=== PATIENT | male | born 1995 | race Caucasian/White ===

== ENCOUNTER 2016-10-05 02:55 | Emergency (ER) | payer BC ==
[~2016-10-05] VITALS: Ht 182.9 cm; Wt 74.2 kg
[2016-10-05 03:00] VITALS: TEMP 36.6; Ht 182.9 cm; Wt 74.2 kg
[2016-10-05] MEDS ORDERED: MULT-506 PO (03:06)
[2016-10-05] MEDS ORDERED: PROT1POW PO (03:06)
[2016-10-05] MEDS ORDERED: XYLOCAINE 1%/SOD BICARB 20 ML VIAL INFIL ONE (03:15)
[2016-10-05 03:20] VITALS: O2SAT 100
--- NOTE | 2016-10-05 03:38 | EMERGENCY ROOM VISIT NOTE ---
History First contact with patient: 03:04 Chief Complaint: FALL Stated Complaint: FALL/LEFT SIDE OF HEAD INJURY History of Present Illness The patient is a 21 year old male who presents to the Emergency Department via EMS for evaluation of head injury. The patient reports that he was drinking this evening with his girlfriend. They became and he reports that he attempted to go into an additional bar, but was not allowed him. He was escorted out by bouncers. He reports that he then went home to his girlfriend' s apartment. While there, he apparently stumbled and fell striking his head on the door jam. They're uncertain if he lost consciousness. Girlfriend contacted EMS for concerns after fall. He complains of pain to the LEFT-sided face and neck. He rates his current discomfort as a 0/10. He denies any other drug use this evening. He does not utilize any blood thinners. He takes no daily medications. The patient denies any chest pain, back pain, abdominal pain , or extremity pain. His tetanus status is up-to-date. Review of Systems A complete 10-point Review of Systems was discussed with the patient, with pertinent positives and negatives listed in the History of Present Illness. All remaining Review of Systems questions can be considered negative unless otherwise specified. Family History FH: heart disease Hypertension Stroke Social History Smoking Status: Never Smoker Smokeless Tobacco Use: No Alcohol Use: occasionally Drug Use: none Marital Status: single Housing Status: lives with roommate Occupation Status: [employer] student Current/Historical Medications Scheduled Multivitamin (Multivitamin), 1 TAB PO DAILY Protein (Protein), Unknown Dose PO DAILY Allergies Coded Allergies: No Known Allergies (Unverified , 10/05/16) Physical Exam Vital Signs Date Time Temp Pulse Resp B/P Pulse Ox O2 Delivery O2 Flow Rate FiO2 10/05/16 04:56 77 16 119/71 100 Room Air 10/05/16 03:22 71 10/05/16 03:20 100 Room Air 10/05/16 03:00 36.6 68 16 139/97 100 Room Air Pain Rating (0-10): 0 Physical Exam VITAL SIGNS - Vital signs and nursing notes were reviewed. GENERAL - 21-year-old male appearing his stated age. Intoxicated and smells of alcohol. HEAD - Normocephalic, Atraumatic. No Siddiqui's Sign or Raccoon's Eyes. No depressed skull fractures palpable. EYES - PERRL with EOMI bilaterally. Without subconjunctival hemorrhage. Palpebral conjunctiva pink and moist with no injection. EARS - 2.5 cm laceration noted to the pinna of the LEFT ear. Edges gape apart with traction. No deep structures appreciated. No active bleeding noted. No hemotympanum present. No tympanic perforation noted. Handle of malleus, umbo, cone of light, pars tensa/flaccid all easily visualized. NOSE - Midline and without cyanosis. No epistaxis or clear watery discharge noted. Septum midline without deviation. No septal hematoma noted. No overlying ecchymosis noted. MOUTH/OROPHARYNX - Without perioral cyanosis. Tongue midline with equal elevation of palate bilaterally. No blood noted in the oropharynx. No tonsillar hypertrophy, erythema, or exudates noted. No dental fractures noted. NECK - FROM assessed. No nuchal rigidity. No tenderness to palpation over the cervical spinous processes. No cervical paraspinal muscle tenderness noted. LUNGS - Chest wall symmetric without accessory muscle use, intercostals retractions, or central cyanosis. Normal vesicular breath sounds CTA B/L. No wheezes, rales, or rhonchi appreciated. CARDIAC - RRR with S1/S2. No murmur, rubs, or gallops appreciated. ABDOMEN - Abdominal contour flat without pulsations or visible masses. BS normoactive all four quadrants. EXTREMITIES - No gross deformities noted of the extremities. NEUROLOGIC - Cranial nerves II through XII grossly intact. Sensory intact to light touch throughout. PSYCH - A&Ox3 and cooperates fully with examiner. Medical Decision & Procedures ER Provider Diagnostic Interpretation: Radiological imaging and reports were reviewed by myself. Radiologist's Interpretation per [facility] as follows: CT HEAD: Comparison 09/12/15. Extracranial soft tissue injury. No ICH, mass effect or skull fracture. CT FACIAL: Soft tissue injury. No acute fracture. Mild chronic appearing sinus opacity. CT C SPINE: No acute fracture. Laboratory Results 10/05/16 03:27 Test 10/05/16 03:27 Anion Gap 5.0 mmol/L (3-11) Est Creatinine Clear Calc Drug Dose 121.8 ml/min Estimated GFR () 123.9 Estimated GFR (Non- 106.9 BUN/Creatinine Ratio 9.5 (10-20) Calcium Level 8.5 mg/dl (8.5-10.1) Ethyl Alcohol mg/dL 229.0 mg/dl (0-3) Procedure Patient was placed on the engine monitor and monitored throughout the entire extent of their stay. In addition, the patient's pulse oximetry was monitored throughout the entire stay. Any abnormalities or aberrancies were addressed appropriately. LEFT Ear Laceration: Costs and benefits of performing primary wound closure versus no repair were discussed with the patient who verbalizes understanding. Verbal consent was obtained prior to performing the procedure. 1.0 cc of 1% buffered lidocaine was used to anesthetize the LEFT ear laceration. The wound was cleansed and prepped in the typical sterile fashion utilizing normal saline and Betadine. The wound was sterilely draped. Once proper anesthetization was established, the wound was further examined and demonstrated a full-thickness laceration through the dermis. No extension into the cartilage of the ear. The wound was copiously irrigated with normal saline and Betadine. The wound was closed using 6 simple, 6-0 nylon sutures with the wound edges being well approximated. Patient tolerated the procedure well. No complications were met. The wound was cleansed and dressed with a Bacitracin dressing. ED Course Patient was seen and evaluated by myself. Labs were drawn. CT of the head, facial bones, and cervical spine were obtained. Medical alcohol was found to be 229.0 mg/dL. Laceration was repaired as described above. Imaging results above. Imaging results reviewed with the patient who acknowledges understanding. Patient was educated on today's findings. He was instructed to refrain from driving for the remainder of the day. Patient was educated on worrisome symptoms for return visit to the emergency department. Patient discharged home in good condition with a sober friend. Medical Decision Given the patient's presentation and exam findings, I did elect to perform the above-mentioned workup. The patient presents to the emergency department after a fall and injury to the RIGHT-sided head. He has laceration to the LEFT ear. CT the head, cervical spine, and facial bones were found to be unremarkable. Patient's alcohol was elevated at 229.0 mg/dL. Patient was monitored in the emergency Department appropriately. He remains awake, alert, and oriented throughout. The patient was educated on today's findings. He will follow-up with his primary care provider or return for changing/worsening symptoms. Patient discharged home in good condition with a sober construction driver. In the evaluation and treatment of this patient, the following differential diagnoses were considered: Concussion, Contrecoup Injury, Brain Tumor, Depression, Encephalitis, Hypothyroidism, Meningitis, CVA, TIA, Migraine, Cluster Headache, Intracranial Abnormality, Intracranial Hemorrhage, Subdural Hematoma, Subarachnoid Hemorrhage, Hydrocephalus. Impression Primary Impression: Laceration of ear Additional Impressions: Fall Alcohol intoxication Departure Information Dispostion Home / Self-Care Condition GOOD Referrals [facility] (PCP) Patient Instructions ED Laceration Facial Sutr Tape, [facility] App[facility] Additional Instructions You have received 6 sutures on your LEFT Ear. These sutures are NOT dissolvable and WILL need to be removed by a health care provider in 7 days. You can return to the Emergency Department or contact your Primary Care Provider to have the sutures removed. Proper wound care is essential for adequate wound healing and infection prevention. You can shower and clean the wound with soap and water. Do not scour over the wound, pat dry with a towel. Do not submerse the wound (i.e. bathe or dish wash) until the sutures have been removed. You can use an antibiotic ointment with a dressing over the wound for the next 3-4 days. After this time you may leave the wound dry and open to the air. If crust develops over the wound you can use a Q-tip to apply a 1:1 peroxide:water solution to clean the wound. Look for signs of infection of the wound including: increased pain, swelling, foul discharge, streaking, or increased temperature. If any of these are noticed you should return to the Emergency Department for further assessment and treatment. As with any laceration you may have received nerve damage to the surrounding tissues. This damage may or may not be permanent. You should keep the area covered with sunscreen for the first 6 months to 1 year when at risk for exposure to help minimize scarring. You can also use scar reducing creams or Vitamin E oil to help minimize scarring. For pain control, you can use the following oako-vhj-sgugtni medicines (if >12 yo): - Regular strength (325mg/tab) Tylenol (acetaminophen) 2 tabs every 4-6 hours as needed. Do not exceed 12 tablets in a 24 hour period. Avoid taking more than 4 grams (4000 mg) of Tylenol per day. This includes any other sources of acetaminophen you may take on a regular basis. - Regular strength (200 mg/tab) Advil (ibuprofen) 1-2 tabs every 4-6 hours as needed. Do not exceed a dose of 3200 mg per day. Return to the emergency department if your symptoms worsen despite treatment course outlined above. Problem Qualifiers Primary Impression: Laceration of ear Encounter type: initial encounter Laterality: left Qualified Codes: S01.312A - Laceration without foreign body of left ear, initial encounter Additional Impressions: Fall Encounter type: initial encounter Qualified Codes: W19.XXXA - Unspecified fall, initial encounter Alcohol intoxication Complication of substance-induced condition: uncomplicated Qualified Codes: F10.120 - Alcohol abuse with intoxication, uncomplicated
[2016-10-05 03:59] LABS: BUN/CREATININE RATIO 9.5 (10-20); CALCIUM 8.5 mg/dl (8.5-10.1); CREATININE 0.99 mg/dl (0.60-1.40); POTASSIUM 4.1 mmol/L (3.5-5.1)
[2016-10-05 05:28] VITALS: BP 119/71; PULSE 77; O2SAT 100
--- NOTE | 2016-10-05 07:29 | DIAGNOSTIC IMAGING REPORT ---
CT SCAN OF THE FACIAL BONES WITHOUT IV CONTRAST CLINICAL HISTORY: Fall. Intoxication. Facial injury. COMPARISON STUDY: Nasal bone radiographs dated 06/18/2014. TECHNIQUE: High-resolution CT scan of the facial bones is performed. Images are reviewed in the axial, sagittal, and coronal planes. IV contrast was not administered for this examination. FINDINGS: The skeletal structures are well mineralized. There is no evidence of facial bone fracture. The bony orbits are intact and the orbital contents are within normal limits. The zygomatic arches, nasal bones, and pterygoid plates are preserved. The maxilla and mandible are intact. There are no layering blood products within the paranasal sinuses. There is trace mucosal thickening within the maxillary antra. The remaining paranasal sinuses and the mastoid air cells are clear. The visualized calvarium and upper cervical spine are maintained. Partially imaged brain parenchyma is within normal limits. IMPRESSION: There is no evidence of facial bone fracture. Electronically signed by: Pk Messer M.D. 10/05/2016 7:28 AM Dictated Date/Time: 10/05/2016 7:22 AM
--- NOTE | 2016-10-05 07:55 | DIAGNOSTIC IMAGING REPORT ---
CT SCAN OF THE BRAIN WITHOUT IV CONTRAST CLINICAL HISTORY: Trauma. Fall. Facial injury. Intoxication. COMPARISON STUDY: CT of the brain dated 09/12/15. MRI of the brain dated 09/12/15. TECHNIQUE: Unenhanced axial CT scan of the brain is performed from the vertex to the skull base. Automated dose control exposure was utilized. FINDINGS: Brain parenchyma: The brain parenchyma is normal in appearance. There is no hemorrhage, mass effect, or evidence of acute territorial ischemia by CT criteria. Anthony-white matter is preserved. No extra-axial fluid collection is seen. Ventricles, sulci, cisterns: Normal in configuration. Intracranial vasculature: The visualized intracranial vasculature at the skull base is normal in appearance. Calvarium: There is no depressed calvarial fracture. Sinuses and mastoids: The visualized paranasal sinuses are clear. The mastoid air cells are well pneumatized. Orbits: The bony orbits are grossly intact. IMPRESSION: No acute intracranial abnormality. Electronically signed by: Pk Messer M.D. 10/05/2016 7:53 AM Dictated Date/Time: 10/05/2016 7:50 AM
--- NOTE | 2016-10-05 07:57 | DIAGNOSTIC IMAGING REPORT ---
CT SCAN OF THE CERVICAL SPINE CLINICAL HISTORY: Trauma. Fall. Intoxication. COMPARISON STUDY: No priors. TECHNIQUE: CT scan of the cervical spine is performed from the skull base to the upper thoracic spine. Images are reviewed in the axial, sagittal, and coronal planes. IV contrast was not administered for this examination. CT DOSE: 1012.20 mGy.cm FINDINGS: Skeletal structures: The skeletal structures are well mineralized. There is no evidence of fracture or subluxation involving the cervical spine. Vertebral body height and alignment are maintained. There is mild straightening of cervical lordosis. The odontoid process and lateral masses are intact. The atlantoaxial articulation is preserved. The spinous processes appear intact. Intervertebral discs: The disc spaces are well maintained. Central canal: Widely patent. Soft tissues: The prevertebral and paraspinous soft tissues are within normal limits. Calvarium: The visualized calvarium at the skull base appears intact. Brain parenchyma: Partially visualized brain parenchyma the skull base is within normal limits. Sinuses and mastoids: Trace mucosal thickening is seen in the maxillary antra. The remaining visualized paranasal sinuses are clear. The mastoid air cells are well pneumatized. Lung apices: Clear as visualized. IMPRESSION: There is no evidence of fracture or subluxation involving the cervical spine. Electronically signed by: Pk Messer M.D. 10/05/2016 7:56 AM Dictated Date/Time: 10/05/2016 7:53 AM
== END 2016-10-05 05:30 | disposition home or self-care (01) ==
LOC: EDBD 02:55 → C.EDB 02:56
DX: S01.312A Laceration without foreign body of left ear, initial encounter (principal); F10.129 Alcohol abuse with intoxication, unspecified; W19.XXXA Unspecified fall, initial encounter

== ENCOUNTER 2016-11-22 23:24 | Emergency (ER) | payer BC ==
[~2016-11-22] VITALS: Ht 182.9 cm; Wt 71.9 kg
[~2016-11-22 23:24] MED LIST: MULT-506 PO; PROT1POW PO
[2016-11-22 23:26] VITALS: TEMP 36.7; Ht 182.9 cm; Wt 71.9 kg
[2016-11-22] MEDS ORDERED: LIDOCAINE/EPINEPHRINE 1% 20 ML VIAL INFIL ONE (23:45)
--- NOTE | 2016-11-23 01:07 | EMERGENCY ROOM VISIT NOTE ---
ED Visit Note First contact with patient: 23:33 CHIEF COMPLAINT: Lacerations HISTORY OF PRESENT ILLNESS: [id number] male patient presents to the emergency department ambulatory complaining of lacerations to the left hand. He states that he was messing around with friends when he fell into a bag which was full of glass. He states he has lacerations to the left hand as well as a laceration to the left elbow. There is minimal bleeding. Denies weakness or numbness of the left hand. The patient rates the pain as and stinging and 1/10. The patient denies any other injuries. The patient's Tetanus shot is up to date. REVIEW OF SYSTEMS: A 6 system review of systems was completed with positives and pertinent negatives listed in the HPI. ALLERGIES: No known drug allergies MEDICATIONS: No chronic medications PMH: No significant past medical history SOCIAL HISTORY: The patient is a [employer] student and lives with roommates. PHYSICAL EXAM: Vital Signs: Reviewed Nurse's notes, vital signs stable. GENERAL : This is a 21-year-old male, in no acute distress, well-developed, well- nourished. SKIN: There is a 1.5 cm long laceration on the medial palmar aspect of the left hand. There is an additional 1 cm laceration to the palmar aspect of the hand, just proximal to the left fifth digit. There is an additional 0.5 cm laceration just lateral to this laceration. The edges gape apart with traction. There is no foreign material in the wounds and they look clean. There is minimal bleeding. No deep structures such as tendons, bones, or significant blood vessels are seen in the base of the wounds. Normal strength and movement of the left hand and all fingers. Capillary refill less than 2 seconds. Normal sensation to light and sharp touch. EMERGENCY DEPARTMENT COURSE: I examined the patient. X-ray was obtained and reviewed by myself with no acute findings and no radiopaque foreign bodies. Verbal consent was obtained to perform the procedure. Using sterile technique the wounds were cleansed with Betadine. The areas were sterilely draped. A total of 3 ml of 1% buffered lidocaine was used to anesthetize the lacerations. Once the patient was anesthetized, the wounds were copiously irrigated under pressure with sterile saline. The wounds were explored and were as described above. The largest laceration was repaired using 3 simple interrupted 5-0 nylon sutures with the wound edges being well approximated. The laceration proximal to the left fifth finger was repaired using 2 simple interrupted 5-0 nylon sutures with the wound edges being well approximated. The third laceration was repaired using one simple interrupted 5-0 nylon on sutures. The patient tolerated the procedure well. Hemostasis was achieved. The areas were cleaned with sterile saline and dressed with bacitracin ointment and bandages. The patient was discharged home in good condition. DIAGNOSIS: Multiple lacerations of left hand Current/Historical Medications Scheduled Multivitamin (Multivitamin), 1 TAB PO DAILY Protein (Protein), Unknown Dose PO DAILY Allergies Coded Allergies: No Known Allergies (Unverified , 11/22/16) Vital Signs Date Time Temp Pulse Resp B/P Pulse Ox O2 Delivery O2 Flow Rate FiO2 11/23/16 01:31 89 16 136/70 99 11/22/16 23:26 36.7 90 18 121/75 97 Room Air Medications Administered Medications (Trade) Dose Ordered Sig/Dilip Route Start Time Stop Time Status Last Admin Dose Admin Lidocaine/ Epinephrine (Xylocaine/Epine 1% Inj) 20 ml ONE ONCE INFIL 11/22/16 23:45 11/22/16 23:46 DC 11/22/16 23:45 20 ML Departure Information Impression Primary Impression: Laceration of multiple sites of hand and fingers Dispostion Home / Self-Care Condition GOOD Referrals [facility] (PCP) Patient Instructions [facility] Additional Instructions You have received 6 sutures on your hand. These sutures are NOT dissolvable and WILL need to be removed by a health care provider in 10-12 days. You can return to the Emergency Department or contact your Primary Care Provider to have the sutures removed. Proper wound care is essential for adequate wound healing and infection prevention. You can shower and clean the wound with soap and water. Do not scour over the wound, pat dry with a towel. Do not submerse the wound (i.e. bathe or dish wash) until the sutures have been removed. You can use an antibiotic ointment with a dressing over the wound for the next 3-4 days. After this time you may leave the wound dry and open to the air. If crust develops over the wound you can use a Q-tip to apply a 1:1 peroxide:water solution to clean the wound. Look for signs of infection of the wound including: increased pain, swelling, foul discharge, streaking, or increased temperature. If any of these are noticed you should return to the Emergency Department for further assessment and treatment. As with any laceration you may have received nerve damage to the surrounding tissues. This damage may or may not be permanent. You should keep the area covered with sunscreen for the first 6 months to 1 year when at risk for exposure to help minimize scarring. You can also use scar reducing creams or Vitamin E oil to help minimize scarring. For pain control, you can use the following fgdz-sos-rfdhbll medicines (if >12 yo): - Regular strength (325mg/tab) Tylenol (acetaminophen) 2 tabs every 4-6 hours as needed. Do not exceed 12 tablets in a 24 hour period. Avoid taking more than 4 grams (4000 mg) of Tylenol per day. This includes any other sources of acetaminophen you may take on a regular basis. - Regular strength (200 mg/tab) Advil (ibuprofen) 1-2 tabs every 4-6 hours as needed. Do not exceed a dose of 3200 mg per day. Return to the emergency department if your symptoms worsen despite treatment course outlined above. Problem Qualifiers Primary Impression: Laceration of multiple sites of hand and fingers Encounter type: initial encounter Laterality: left Qualified Codes: S61.412A - Laceration without foreign body of left hand, initial encounter; S61.219A - Laceration without foreign body of unspecified finger without damage to nail, initial encounter
[2016-11-23 01:31] VITALS: BP 136/70; PULSE 89; O2SAT 99
--- NOTE | 2016-11-23 06:41 | DIAGNOSTIC IMAGING REPORT ---
LEFT HAND MIN 3 VIEWS ROUTINE CLINICAL HISTORY: Left hand pain status post trauma COMPARISON: None. DISCUSSION: The patient was unable to fully straighten his fingers. There are no acute fractures. There is a bone island within the capitate. There is a suspected soft tissue laceration adjacent to the base of the fifth metacarpal. There is a tiny calcification/foreign body within the soft tissues lateral to the navicular. IMPRESSION: No acute fractures or dislocations identified. Electronically signed by: Ben Gallegos M.D. 11/23/2016 6:39 AM Dictated Date/Time: 11/23/2016 6:38 AM
== END 2016-11-23 01:33 | disposition home or self-care (01) ==
LOC: C.EDB 23:24 → C.EDC 11-23 01:33
DX: S61.412A Laceration without foreign body of left hand, initial encounter (principal); S61.217A Laceration without foreign body of left little finger without damage to nail, initial encounter; W18.39XA Other fall on same level, initial encounter; W25.XXXA Contact with sharp glass, initial encounter; Y93.83 Activity, rough housing and horseplay; Y99.8 Other external cause status